=== PATIENT | male | born 1960 | race African-American/Black ===

== ENCOUNTER 2018-02-14 11:10 | Emergency (ER) | payer OTHER ==
[~2018-02-14] VITALS: Ht 180.3 cm; Wt 80.0 kg
[2018-02-14 11:38] LABS: IMMATURE GRANULOCYTES 0.3 % (0.0-1.0); MEAN CELL VOLUME 92.1 fL CALC (80.0-100.0); MEAN CORPUSCULAR HGB 28.2 pG CALC (26.0-32.0); MEAN CORPUSCULAR HGB CONC 30.7 g/L CALC (32.0-36.0); NEUT# 4.96 thou/uL (1.82-7.42); RED BLOOD COUNT 2.16 mill/uL (4.70-6.10); RED CELL DISTRI WIDTH 13.9 % (11.5-15.5)
[2018-02-14 11:41] LABS: HEMOGLOBIN 6.1 g/dl (14.0-18.0)
[2018-02-14 11:42] LABS: HEMATOCRIT 19.9 % (39.0-50.0)
[2018-02-14 11:56] LABS: INTERNATIONAL NORMALIZED RATIO 1.8 RATIO (0.7-1.3); PROTHROMBIN TIME 19.9 SECONDS (9.0-12.5)
[2018-02-14 11:57] LABS: ANION GAP 14 (6-22 (CALC)); BUN 12 mg/dL (9-20); BUN/CREATININE RATIO 11 (12-20 (CALC)); CARBON DIOXIDE 25 mmol/l (22-30); CHLORIDE 105 mmol/l (95-108); CREATININE 1.1 mg/dL (0.7-1.3); GFR > 60 ML/MIN (>=60 (CALC)); GFR FOR AFR.AMER. > 60 ML/MIN (>=60 (CALC)); POTASSIUM 4.3 mmol/l (3.5-5.1); SODIUM 140 mmol/l (137-146)
[2018-02-14 13:03] VITALS: BP 138/92
[2018-02-14 13:26] VITALS: BP 139/88
[2018-02-14 15:13] VITALS: BP 146/97
[2018-02-14 15:31] VITALS: BP 162/96
[2018-02-14 16:56] VITALS: BP 162/96
== END 2018-02-14 16:56 | disposition other institution (70) | DRG 378 ==
LOC: ED 11:10
PROVIDERS: Family Medicine
PROC: 30233N1 Transfusion of Nonautologous Red Blood Cells into Peripheral Vein, Percutaneous Approach (ICD-10-PCS; principal; 2018-02-14)
PROC: 30233N1 Transfusion of Nonautologous Red Blood Cells into Peripheral Vein, Percutaneous Approach (ICD-10-PCS; 2018-02-14)
PROC: 30233N1 Transfusion of Nonautologous Red Blood Cells into Peripheral Vein, Percutaneous Approach (ICD-10-PCS; 2018-02-14)
DX: K92.1 Melena (principal); D64.9 Anemia, unspecified; B19.10 Unspecified viral hepatitis B without hepatic coma; I48.91 Unspecified atrial fibrillation; I10 Essential (primary) hypertension
CPT/HCPCS: P9016; S0164

== ENCOUNTER 2018-06-24 16:48 | Emergency (ER) | payer OTHER ==
[~2018-06-24] VITALS: Ht 180.3 cm; Wt 79.5 kg
[2018-06-24 17:39] LABS: BASO% 0 % (0-3); EOS% 0 % (0-8); IMMATURE GRANULOCYTES 0.4 % (0.0-5.0); MEAN CORPUSCULAR HGB 24.3 pG CALC (26.0-32.0); MEAN CORPUSCULAR HGB CONC 30.6 g/L CALC (32.0-36.0); RED BLOOD COUNT 2.14 mill/uL (4.70-6.10); RED CELL DISTRI WIDTH 23.3 % (11.5-15.5)
[2018-06-24 17:51] LABS: ALBUMIN 2.7 g/dL (3.2-5.0); ALKALINE PHOSPHATASE 30 u/l (38-126); ANION GAP 13 (6-22 (CALC)); BILIRUBIN, TOTAL 0.2 mg/dL (0.0-1.4); BUN 28 mg/dL (9-20); BUN/CREATININE RATIO 30 (12-20 (CALC)); CARBON DIOXIDE 24 mmol/l (22-30); CHLORIDE 111 mmol/l (95-108); GFR > 60 ML/MIN (>=60 (CALC)); GFR FOR AFR.AMER. > 60 ML/MIN (>=60 (CALC)); LIPASE 327 u/l (23-300); SGOT/AST 19 u/l (17-59); SGPT/ALT 29 u/l (21-72); SODIUM 144 mmol/l (137-146); TOTAL PROTEIN 5.2 g/dL (6.3-8.2)
[2018-06-24 17:57] LABS: HEMOGLOBIN 5.2 g/dl (14.0-18.0); MEAN CELL VOLUME 79.4 fL CALC (80.0-100.0); PLATELET COUNT 192 thou/uL (130-400)
[2018-06-24 17:58] LABS: MANUAL DIFFERENTIAL YES
[2018-06-24 18:25] LABS: HYPOCHROMIA MARKED; MICROCYTOSIS MODERATE
[2018-06-24 18:35] LABS: INTERNATIONAL NORMALIZED RATIO 5.2 RATIO (0.7-1.3); PROTHROMBIN TIME 60.2 SECONDS (9.0-12.5)
[2018-06-24 19:23] VITALS: BP 160/84
== END 2018-06-24 19:24 | disposition short-term general hospital (02) | DRG 378 ==
LOC: ED 16:48
PROVIDERS: Family Medicine
PROC: 30233N1 Transfusion of Nonautologous Red Blood Cells into Peripheral Vein, Percutaneous Approach (ICD-10-PCS; principal; 2018-06-24)
PROC: 30233N1 Transfusion of Nonautologous Red Blood Cells into Peripheral Vein, Percutaneous Approach (ICD-10-PCS; 2018-06-24)
DX: K92.0 Hematemesis (principal); B19.10 Unspecified viral hepatitis B without hepatic coma; I48.91 Unspecified atrial fibrillation; I10 Essential (primary) hypertension
CPT/HCPCS: J2354; P9016; S0164

== ENCOUNTER 2021-05-23 14:16 | Emergency (ER) | payer OTHER ==
[~2021-05-23] VITALS: Ht 180.3 cm; Wt 77.3 kg
[2021-05-23] MEDS ORDERED: TAMSULOSIN0.4 MG PO (14:38)
[2021-05-23] MEDS ORDERED: ASPIRIN LOW DOS81 M1 PO (14:39)
[2021-05-23] MEDS ORDERED: VERAPAMIL120 M1 PO (14:39)
[2021-05-23] MEDS ORDERED: LISINOPRIL20 MG PO (14:40)
[2021-05-23] MEDS ORDERED: FLECAINIDE100 MG PO (14:40)
[2021-05-23] MEDS ORDERED: HYDROCHLOROT25 MG PO (14:40)
[2021-05-23 14:52] LABS: MEAN CORPUSCULAR HGB 27.8 pG CALC (26.0-32.0); MEAN CORPUSCULAR HGB CONC 32.4 g/dL CAL (32.0-36.0); NEUT# 3.21 thou/uL (1.82-7.42); RED BLOOD COUNT 5.11 mill/uL (4.70-6.10); RED CELL DISTRI WIDTH 12.4 % (11.5-15.5)
[2021-05-23 14:53] LABS: HEMATOCRIT 43.8 % (39.0-50.0); HEMOGLOBIN 14.2 g/dl (14.0-18.0); MEAN CELL VOLUME 85.7 fL CALC (80.0-100.0)
[2021-05-23 15:04] LABS: ALKALINE PHOSPHATASE 42 u/l (38-126); BUN 13 mg/dL (8-23); BUN/CREATININE RATIO 12 (12-20 (CALC)); CARBON DIOXIDE 28 mmol/l (22-30); CREATININE 1.1 mg/dL (0.7-1.3); ETHYL ALCOHOL 0 mg/dl (0-30); GFR > 60 ML/MIN (>=60 (CALC)); GFR FOR AFR.AMER. > 60 ML/MIN (>=60 (CALC)); LIPASE 158 u/l (23-300); POTASSIUM 3.4 mmol/l (3.5-5.1); SGOT/AST 30 u/l (19-48)
[2021-05-23 15:15] LABS: D-DIMER 0.22 mg/L (0.19-0.60)
[2021-05-23 15:16] LABS: ALBUMIN 4.1 g/dL (3.2-5.0); ANION GAP 10 (6-22 (CALC)); CHLORIDE 94 mmol/l (95-108); SODIUM 129 mmol/l (137-146); TOTAL PROTEIN 7.6 g/dL (6.3-8.2)
[2021-05-23 15:19] LABS: ACT PARTIAL THROMBO TIME 23.9 SECONDS (20.0-32.5)
[2021-05-23 15:20] LABS: INTERNATIONAL NORMALIZED RATIO 1.2 RATIO (0.7-1.3); PROTHROMBIN TIME 12.7 SECONDS (9.0-12.5)
[2021-05-23 17:21] VITALS: BP 188/112
== END 2021-05-23 17:22 | disposition short-term general hospital (02) | DRG 313 ==
LOC: ED 14:16
DX: R07.9 Chest pain, unspecified (principal); B19.10 Unspecified viral hepatitis B without hepatic coma; I49.8 Other specified cardiac arrhythmias; I95.9 Hypotension, unspecified; I10 Essential (primary) hypertension; I48.91 Unspecified atrial fibrillation; Z20.822 Contact with and (suspected) exposure to COVID-19